=== PATIENT | female | born 1955 | race Caucasian/White ===

== ENCOUNTER → 2016-11-30 | Outpatient (CLI) | payer BC ==
--- NOTE | 2016-11-30 08:34 | CT ---
EXAMINATION TYPE: CT abdomen pelvis wo con DATE OF EXAM: 11/30/2016 COMPARISON: NONE INDICATION: Bilateral flank pain, hematuria DLP: 1139 mGycm, Automated exposure control for dose reduction was used. CONTRAST: None Study performed without Oral Contrast TECHNIQUE: Axial images were obtained from above the diaphragm to the pubic rami in the axial plane a t 5 mm thick sections. Reconstructed images are reviewed on the computer in the coronal plane. FINDINGS: Limited CT sections are obtained the lung bases. The lung bases are clear. CT ABDOMEN: Liver: Normal Spleen: Normal Pancreas: Normal Adrenal glands: Left adrenal gland is mildly thickened at 1.2 cm. Right adrenal gland appears unrema rkable. Gallbladder: Normal Kidneys: No masses are evident. No hydronephrosis is present. No cysts are present. In the coronal plane couple of tiny nonobstructing right renal stones may be present. Aorta: Vascular calcification is within the aorta. Inferior vena cava: Normal. CT PELVIS: Loops of bowel within the abdomen and pelvis are normal. Loops of bowel are without oral contrast limiting their evaluation. Some moderate fecal retention is through the colon. Appendix: Normal as visualized. Urinary bladder: Normal. Genitourinary structures: Uterus is normal. Adnexal regions appear normal. There is calcification in the left adnexal region adjacent to the uterus and posterior to the ovary. Multiple phleboliths withi n the pelvis. Osseous structures: No suspicious lytic or sclerotic lesions. Sacroiliac joint degenerative changes a re noted. Facet degenerative changes are present. IMPRESSIONS: 1. No acute changes. 2. Punctate 1 mm calcification may be in the superior pole right kidney without evidence of obstructi on. No hydronephrosis or hydroureter is present. 3. Mild fecal retention.
== END | disposition home or self-care (01) ==
LOC: RADCTMAIN 08:01
PROVIDERS: ATTEND Internal Medicine Geriatric Medicine
DX: N28.89 Other specified disorders of kidney and ureter (principal); K59.00 Constipation, unspecified
CPT/HCPCS: 74176

== ENCOUNTER → 2016-12-13 | Outpatient (CLI) | payer BC ==
--- NOTE | 2016-12-13 08:17 | US ---
EXAMINATION TYPE: US abdomen complete DATE OF EXAM: 12/13/2016 COMPARISON: NONE CLINICAL HISTORY: Abn Liver Function R94.5. EXAM MEASUREMENTS: Liver Length: 13.8 cm Gallbladder Wall: 0.3 cm CBD: 0.3 cm Spleen: 11.2 cm Right Kidney: 10.3 x 5.5 x 4.8 cm Left Kidney: 10.9 x 5.8 x 4.5 cm Morbidly obese patient, study technically difficult and very limited by this. Pancreas: portions visualized wnl, partially obscured by bowel gas Liver: limited visualization, right lobe seen only intercostal,increased attenuation Gallbladder: very limited view, neck not seen, possible dependant sludge Evidence for sonographic Lundberg's sign: no CBD: limited view Spleen: wnl Right Kidney: No hydronephrosis or masses seen Left Kidney: No hydronephrosis or masses seen Upper IVC: wnl Abd Aorta: distal portion and bifurcation obscured by bowel gas, atherosclerotic changes evident IMPRESSION: 1. Exam limited due to patient body habitus and bowel gas. 2. No suspicious acute changes.
== END | disposition home or self-care (01) ==
LOC: RADUSWWP 06:47
PROVIDERS: ATTEND Internal Medicine Geriatric Medicine
DX: R94.5 Abnormal results of liver function studies (principal); R93.9 Diagnostic imaging inconclusive due to excess body fat of patient
CPT/HCPCS: 76700

== ENCOUNTER 2018-04-02 10:00 | Emergency (ER) | payer BC ==
[2018-04-02 10:13] VITALS: RESP 18; TEMP 97.6
[2018-04-02] MEDS ORDERED: LABETALOL 5 MG/ML VIAL MDV IVP STA (10:14)
[2018-04-02] MEDS ORDERED: MORPHINE SULFATE 4 MG/ML SYRINGE IVP STA (10:15)
[2018-04-02] MEDS ORDERED: ENALAPRILAT 1.25 MG/ML 1 ML VIAL IVP STA ×2 (10:20→10:49)
--- NOTE | 2018-04-02 10:31 | ED ---
Chest Pain HPI - General Chief Complaint: Chest Pain Stated Complaint: chest pain Time Seen by Provider: 04/02/18 10:14 Source: patient, RN notes reviewed, old records reviewed Mode of arrival: wheelchair Limitations: no limitations - History of Present Illness Initial Comments: This is a 63-year-old female the ER for evaluation. Patient is today for severe evaluation of chest pain severe chest pain and abdominal pain severe. Patient also complains of numbness in both legs pain in both legs. Patient's nauseous sweaty. All symptoms began while having a bowel movement earlier today. Patient has no history of high blood pressure, history of thyroid issues and high cholesterol. Denies any trauma. No prior abdominal pain or similar pain Review of Systems ROS Statement: Those systems with pertinent positive or pertinent negative responses have been documented in the HPI. ROS Other: All systems not noted in ROS Statement are negative. EKG Findings - EKG Comments: EKG Findings:: EKG shows sinus bradycardia Past Medical History Past Medical History: GERD/Reflux, Hyperlipidemia, Thyroid Disorder History of Any Multi-Drug Resistant Organisms: None Reported Past Surgical History: No Surgical Hx Reported Past Psychological History: No Psychological Hx Reported Smoking Status: Never smoker Past Alcohol Use History: None Reported Past Drug Use History: Marijuana General Exam Limitations: no limitations General appearance: alert, anxious, in distress, other (Diaphoretic) Head exam: Present: atraumatic, normocephalic, normal inspection Eye exam: Present: normal appearance, PERRL, EOMI. Absent: scleral icterus, conjunctival injection, periorbital swelling ENT exam: Present: normal exam, mucous membranes moist Neck exam: Present: normal inspection. Absent: tenderness, meningismus, lymphadenopathy Respiratory exam: Present: normal lung sounds bilaterally. Absent: respiratory distress, wheezes, rales, rhonchi, stridor Cardiovascular Exam: Present: bradycardia, normal heart sounds. Absent: systolic murmur, diastolic murmur, rubs, gallop, clicks GI/Abdominal exam: Present: soft, normal bowel sounds. Absent: distended, tenderness, guarding, rebound, rigid Extremities exam: Present: other (Bilateral lower extremities are pale, cold, no detectable pulses). Absent: tenderness, pedal edema, joint swelling, calf tenderness Back exam: Present: normal inspection Neurological exam: Present: alert, oriented X3, CN II-XII intact Psychiatric exam: Present: normal affect, normal mood Skin exam: Present: warm, dry, intact, normal color. Absent: rash Course Vital Signs 04/02/18 04/02/18 04/02/18 10:07 11:06 11:09 Temperature 97.6 F Pulse Rate 42 L 48 L 52 L Respiratory 18 18 18 Rate Blood Pressure 197/82 132/58 O2 Sat by Pulse 95 94 L 93 L Oximetry - Reevaluation(s) Reevaluation #1: 04/02/18 11:16 Patient started on strict blood pressure control secondary to elevated blood pressure and a acute aortic dissection Pressure significantly improved systolic 138 Heart rate 46 Reevaluation #2: 04/02/18 11:17 Spoke with Frank Hong unable to take his, did speak with [facility] who is accepting of patient transfer Reevaluation #3: 04/02/18 11:17 Family made aware of findings and prognosis, questions are answered Reevaluation #4: 04/02/18 11:17 Studies CTA chest positive aortic dissection Chest Pain MDM - MDM 63 female the ER for evaluation, patient currently was severe chest pain diaphoresis bradycardia and bilateral lower extremity numbness, patient does have significant findings on CT of acute aortic dissection, patient be transferred for [facility] for further evaluation management Critical Care Time Critical Care Time: Yes Total Critical Care Time: 31 Disposition Clinical Impression: Chest pain, Bradycardia, Acute thoracic aortic dissection Disposition: OTHER INSTITUTION NOT DEFINED Condition: Critical Is patient prescribed a controlled substance at d/c from ED?: No Referrals: Kemal Chapa MD [Primary Care Provider] - 1-2 days - Out of Hospital Transfer - Req. Specs Out of Hospital Transfer - Requested Specifics: Other Emergency Center ([facility])
[2018-04-02] MEDS ORDERED: ONDANSETRON 4 MG/2 ML VIAL IVP STA ×2 (10:35→11:34)
[2018-04-02 10:43] LABS: Basophils # (A) 0.1 k/uL (0-0.2); Basophils % (A) 1 %; Eosinophils # (A) 0.5 k/uL (0-0.7); Eosinophils % (A) 4 %; HCT 44.7 % (34.0-46.0); HGB 14.2 gm/dL (11.4-16.0); Lymphocytes # (A) 2.6 k/uL (1.0-4.8); Lymphocytes % (A) 20 %; MCH 34.1 pg (25.0-35.0); MCHC 31.9 g/dL (31.0-37.0); MCV 107.2 fL (80.0-100.0); Macrocytosis Moderate; Mean Platelet Volume 7.8; Monocytes # (A) 0.7 k/uL (0-1.0); Monocytes % (A) 5 %; Neutrophils # (A) 8.5 k/uL (1.3-7.7); Neutrophils % (A) 68 %; Platelet Count 217 k/uL (150-450); RBC 4.17 m/uL (3.80-5.40); RDW 12.8 % (11.5-15.5); WBC 12.6 k/uL (3.8-10.6)
[2018-04-02] MEDS ORDERED: NITROPRUSSIDE 50 MG in DEXTROSE 5% IN WATER 250 ML IV ONE ×2 (10:44)
[2018-04-02] MEDS ORDERED: NITROGLYCERIN-D5W PMX 50 MG in DEXTROSE/WATER 1 250ML.BAG IV ONE (10:45)
[2018-04-02 10:50] LABS: Partial Thromboplastin Time 24.4 sec (22.0-30.0); Prothrombin Time 9.9 sec (9.0-12.0)
[2018-04-02 11:00] LABS: Albumin 3.7 g/dL (3.5-5.0); Calcium 9.1 mg/dL (8.4-10.2); Magnesium 1.8 mg/dL (1.6-2.3); Potassium 4.3 mmol/L (3.5-5.1); Total Bilirubin 0.5 mg/dL (0.2-1.3); Total Protein 6.5 g/dL (6.3-8.2)
[2018-04-02 11:10] LABS: Creatine Kinase 104 U/L (30-135)
--- NOTE | 2018-04-02 11:17 | CT ---
EXAMINATION TYPE: CT angio tho/abd W Run Off DATE OF EXAM: 04/02/2018 COMPARISON: CT abdomen and pelvis 11/30/2016 HISTORY: 63-year-old female with pain, absent pulses in the lower extremities CT DLP: 3462.6 mGycm Automated exposure control for dose reduction was used. Technique: CT chest, abdomen, and pelvis with bilateral large survey runoff before and after IV contr ast administration. 100 mL Isovue-370 was administered. Coronal and sagittal reconstructions performe d. 3-D reconstructions generated on a dedicated independent workstation. FINDINGS: Chest: Heart borderline enlarged. Enlarged caliber to the main right and left pulmonary arteries measuring up to 2.8 cm suggesting unde rlying pulmonary arterial hypertension. No mediastinal lymphadenopathy. Dependent atelectasis in the lungs. Additional patchy areas of atelectasis in the lower lungs. No ple ural effusion. Vasculature: Initial noncontrast images show no evidence for acute intramural hematoma. Ascending aorta mildly aneurysmal at 4.2 cm. Conventional arch vessel branching anatomy. Upper descen ding thoracic aorta aneurysmal at 3.5 cm. There is a large type B aortic dissection beginning just after the left subclavian artery takeoff. Th ere is no opacification of the false lumen on arterial phase imaging and there is slitlike narrowing of the true lumen which, pneumothorax, is located towards the right with the slitlike opening measuri ng only 3 mm in some areas. In the abdomen, the false lumen extends back around and is nearly circumferential but the celiac axis and SMA manage to arise from the true lumen. The right renal artery lacks perfusion as it arises from the false lumen. Below the level of the right renal artery takeoff, the false lumen swings towards the right. The left renal artery arises from the true lumen. The inferior mesenteric artery is opacified arising from the junction between the true and false lume n likely secondary to a small fenestration. Dissection terminates at the level of the bifurcation. No extension identified into either common or external iliac arteries. Regarding the bilateral lower extremities, there is satisfactory opacification of the common and supe rficial femoral arteries as well as the popliteal arteries. The right anterior tibial, right posterior tibial, and left anterior tibial arteries are very diminut steve likely due to relatively decreased perfusion from the more proximal dissection. Abdomen: No focal liver lesion on arterial phase imaging. Gallbladder, right adrenal gland, spleen, and pancre as appear within normal limits. Nodular thickening of the left adrenal gland. Statistically, this lik erica represents underlying adrenal adenoma. No dilated small bowel, free fluid, or free air. No mesenteric a few prominent upper abdominal lymph nodes in the gastrohepatic region and aleyda hepatis measure up to 8 mm and are probably reactive. No other mesenteric or retroperitoneal lymphadenopathy seen. No significant stool burden. Pelvis: Bladder collapse. Multiple pelvic phleboliths. No abnormal fluid collection the pelvis or pelvic lymp hadenopathy. Slight thickened appearance to the endometrium can be evaluated by pelvic ultrasound on nonemergent basis. Bones: Degenerative changes mid to lower lumbar spine and endplate spondylosis mid to lower thoracic spine. IMPRESSION: 1. Type B aortic dissection extending from just after the left subclavian artery takeoff and terminat ing distally at the aortic bifurcation. This is a large dissection narrowing the thoracic aortic true lumen to a slitlike 3 mm. Given the absent lower extremity pulses on physical exam, suspect some deg ree of dynamic systolic collapsibility of the true lumen. 2. The celiac axis, SMA, left renal artery, and CAITLIN remain perfused via the true lumen. 3. The right renal artery is supplied by the false lumen and is not perfused. 4. There is contrast opacification of the common iliac arteries down through the bilateral trifurcati ons. Some of the trifurcation vessels become diminutive probably in part due to intermittent systolic collapsibility of the true lumen. Underlying chronic vasculopathy is also possible. 5. Nonemergent pelvic ultrasound recommended to assess endometrial thickness in this postmenopausal p atient. Critical findings called to Dr. Whittington in the ER at 10:58 AM.
[2018-04-02 11:22] LABS: Creatine Kinase MB 1.7 ng/mL (0.0-2.4); Troponin I <0.012 ng/mL (0.000-0.034)
[2018-04-02] MEDS ORDERED: LORazepam 2 MG/ML INJ IV STA (11:34)
[2018-04-02 11:42] VITALS: BP 137/54; PULSE 49
== END 2018-04-02 11:43 | disposition short-term general hospital (02) ==
LOC: EC 10:00
DX: I71.01 Dissection of thoracic aorta (principal); R00.1 Bradycardia, unspecified; Z53.8 Procedure and treatment not carried out for other reasons
CPT/HCPCS: 99291; 96365; 96375 ×4; 96376 ×2; 36415; 93005; 86900; 86901; 83880; 80053; 82550; 82553; 83690; 83735; 84484; 85025; 85610; 85730; 86850; 75635; 71275; J2060; J2270; J2405; Q9967

== ENCOUNTER 2018-07-13 21:58 | Emergency (ER) | payer BC ==
--- NOTE | 2018-07-13 22:15 | ED ---
Chest Pain HPI - General Chief Complaint: Chest Pain Stated Complaint: chest pain Time Seen by Provider: 07/13/18 22:07 Source: patient, RN notes reviewed, old records reviewed Mode of arrival: ambulatory Limitations: no limitations - History of Present Illness Initial Comments: This is a 63-year-old female the ER for evasive chest pain. Patient is at significant recent history of chest pain resulting in aortic dissection. Patient has had follow-up is been normal, should have surgery with stent placement that was in did improve her symptoms allow she has been significantly weak fatigue with occasional shortness of breath. Patient does admit to doing some extra lifting today and complaining some chest pain left arm pain mild anxiety with her recent medical history currently. Patient denies any recent change in medications. She did take her blood pressure medication and her blood pressure is been normal MD Complaint: chest pain -: hour(s) Pain Location: left chest Pain Radiation: LUE Severity: mild Severity scale (1-10): 3 Quality: heaviness Consistency: constant, now resolved Improves With: nothing Worsens With: nothing Context: recent surgery Anginal Symptoms: dyspnea Other Symptoms: palpitations Treatments Prior to Arrival: none - Related Data Home Medications Medication Instructions Recorded Confirmed Aspirin EC [Ecotrin Low Dose] 81 mg PO DAILY 04/02/18 07/13/18 Baclofen 10 mg PO DAILY PRN 04/02/18 07/13/18 Levothyroxine Sodium [Synthroid] 50 mcg PO DAILY 04/02/18 07/13/18 Acetaminophen Tab [Tylenol] 500 mg PO Q8HR PRN 07/13/18 07/13/18 DULoxetine HCL [Cymbalta] 30 mg PO DAILY 07/13/18 07/13/18 Lovastatin [Mevacor] 20 mg PO DAILY 07/13/18 07/13/18 Metoprolol Tartrate [Lopressor] 75 mg PO BID 07/13/18 07/13/18 NIFEdipine XL [Procardia XL] 60 mg PO DAILY 07/13/18 07/13/18 Zolpidem Tartrate [Ambien] 2.5 mg PO HS 07/13/18 07/13/18 Allergies Allergy/AdvReac Type Severity Reaction Status Date / Time codeine AdvReac Unknown Verified 07/13/18 22:26 Review of Systems ROS Statement: Those systems with pertinent positive or pertinent negative responses have been documented in the HPI. ROS Other: All systems not noted in ROS Statement are negative. EKG Findings - EKG Comments: EKG Findings:: EKG shows sinus rhythm rate of 84, IL 160, QRS 84, QTC 486 Past Medical History Past Medical History: GERD/Reflux, Hyperlipidemia, Thyroid Disorder Additional Past Medical History / Comment(s): aortic dissection on 04/02/18 History of Any Multi-Drug Resistant Organisms: None Reported Past Surgical History: No Surgical Hx Reported Additional Past Surgical History / Comment(s): Endo graft with stent. Past Psychological History: No Psychological Hx Reported Smoking Status: Never smoker Past Alcohol Use History: None Reported Past Drug Use History: Marijuana General Exam Limitations: no limitations General appearance: alert, in no apparent distress Head exam: Present: atraumatic, normocephalic, normal inspection Eye exam: Present: normal appearance, PERRL, EOMI. Absent: scleral icterus, conjunctival injection, periorbital swelling ENT exam: Present: normal exam, mucous membranes moist Neck exam: Present: normal inspection. Absent: tenderness, meningismus, lymphadenopathy Respiratory exam: Present: normal lung sounds bilaterally. Absent: respiratory distress, wheezes, rales, rhonchi, stridor Cardiovascular Exam: Present: regular rate, normal rhythm, normal heart sounds. Absent: systolic murmur, diastolic murmur, rubs, gallop, clicks GI/Abdominal exam: Present: soft, normal bowel sounds. Absent: distended, tenderness, guarding, rebound, rigid Extremities exam: Present: normal inspection, full ROM, normal capillary refill. Absent: tenderness, pedal edema, joint swelling, calf tenderness Back exam: Present: normal inspection Neurological exam: Present: alert, oriented X3, CN II-XII intact Psychiatric exam: Present: normal affect, normal mood Skin exam: Present: warm, dry, intact, normal color. Absent: rash Course Vital Signs 07/13/18 07/13/18 07/14/18 22:01 22:43 01:09 Temperature 97.7 F 98.9 F Pulse Rate 95 82 Pulse Rate [ 95 [employer] Ware[employer] ] Respiratory 18 20 16 Rate Blood Pressure 166/94 123/78 O2 Sat by Pulse 96 97 Oximetry - Reevaluation(s) Reevaluation #1: Medical record is reviewed including prior ER visit with positive CTA for dissection Patient is without complaint throughout emergency department stay no chest pain Patient does admit to anxiety Spoke with . do her will see patient in follow-up on renal function secondary to CT with contrast, one kidney Chest Pain MDM - MDM 63 female the ER for evaluation of chest pain. Anxiety. Patient has normal CT , informed her results patient feels improved. Like to be discharged home Disposition Clinical Impression: Chest pain Disposition: HOME SELF-CARE Condition: Good Instructions (If sedation given, give patient instructions): Chest Pain (ED) Is patient prescribed a controlled substance at d/c from ED?: No Referrals: Kemal Chapa MD [Primary Care Provider] - 1-2 days
[2018-07-13 22:44] LABS: Basophils # (A) 0.1 k/uL (0-0.2); Basophils % (A) 1 %; Eosinophils # (A) 0.5 k/uL (0-0.7); Eosinophils % (A) 5 %; HCT 41.8 % (34.0-46.0); HGB 13.8 gm/dL (11.4-16.0); Lymphocytes # (A) 3.2 k/uL (1.0-4.8); Lymphocytes % (A) 31 %; MCH 34.3 pg (25.0-35.0); MCHC 32.9 g/dL (31.0-37.0); MCV 104.2 fL (80.0-100.0); Macrocytosis Slight; Mean Platelet Volume 6.8; Monocytes # (A) 0.7 k/uL (0-1.0); Monocytes % (A) 7 %; Neutrophils # (A) 5.6 k/uL (1.3-7.7); Neutrophils % (A) 54 %; Platelet Count 296 k/uL (150-450); RBC 4.01 m/uL (3.80-5.40); RDW 12.6 % (11.5-15.5); WBC 10.3 k/uL (3.8-10.6)
[2018-07-13 22:54] LABS: Albumin 4.5 g/dL (3.5-5.0); Calcium 9.6 mg/dL (8.4-10.2); Magnesium 2.3 mg/dL (1.6-2.3); Potassium 4.5 mmol/L (3.5-5.1); Total Bilirubin 0.3 mg/dL (0.2-1.3); Total Protein 7.8 g/dL (6.3-8.2)
[2018-07-13 23:01] LABS: INR 0.8 (<1.2); Partial Thromboplastin Time 26.6 sec (22.0-30.0); Prothrombin Time 9.3 sec (9.0-12.0)
[2018-07-13 23:04] LABS: Creatine Kinase 55 U/L (30-135)
[2018-07-13 23:17] LABS: Creatine Kinase MB 0.3 ng/mL (0.0-2.4); Troponin I <0.012 ng/mL (0.000-0.034)
--- NOTE | 2018-07-14 00:32 | CT ---
EXAMINATION TYPE: CT angio thor/abd pel aorta DATE OF EXAM: 07/14/2018 COMPARISON: 04/02/2018 HISTORY: chest pain CT DLP: 2408.8 mGycm. Automated Exposure Control for Dose Reduction was Utilized. CONTRAST: CT scan of the thorax, abdomen and pelvis is performed with IV Contrast, patient injected with 100mL mL of Isovue 370. FINDINGS: Multiple axial sections were obtained from the thoracic inlet to the floor the pelvis without and sub sequently with intravenous contrast. There are 3-D post processed images. There is subsegmental atelectasis at the posterior lung bases. Thoracic aorta shows a stent in the de scending thoracic aorta. There is no evidence of thoracic aneurysm or dissection. There is no mediast inal adenopathy. There are no hilar masses. There is no filling defect seen in the pulmonary arteries . There is no pericardial effusion. There is patency of the celiac artery and superior mesenteric artery. There is a diminutive right fabi al artery. There is a normal-appearing left renal artery. There is decreased perfusion of the right k idney with cortical thinning consistent with chronic ischemia. There is normal contrast opacification of the iliac arteries. There is no evidence of abdominal aorti c aneurysm. Liver spleen stomach gallbladder pancreas appear normal. Bile ducts are not dilated. There is no adre nal mass. There is no retroperitoneal adenopathy. There is no ascites. There is no evidence of a santo l obstruction. Appendix appears normal. There is no free fluid in the pelvis. There is no mesenteric edema. There is no sign of free air. There is focal aortic dissection on the right lateral wall of th e mid abdominal aorta at the location of the right renal artery origin. I see no bony destructive process. Thoracic and lumbar vertebra appear intact. There is spurring in t he thoracic and lumbar spine. There is severe stenosis at L4-5 due to extensive facet arthropathy and posterior disc bulging. IMPRESSION: Compared to last exam there has been placement of aortic stent repairing the long segment aortic diss ection of the descending thoracic aorta. There is chronic ischemic change in the right kidney and dec reased flow in the right renal artery. There was absence of flow in right renal artery on the old CT scan. There is limited chronic dissection of the right lateral mid abdominal aorta at the level of ri ght renal artery. No aneurysm. No evidence of intestinal ischemia. Severe bony spinal stenosis at L4-5.
[2018-07-14 01:11] VITALS: BP 123/78; PULSE 82; RESP 16; TEMP 98.9
== END 2018-07-14 01:23 | disposition home or self-care (01) ==
LOC: EC 21:58
DX: R07.89 Other chest pain (principal); F41.9 Anxiety disorder, unspecified; M79.602 Pain in left arm; R00.2 Palpitations; K21.9 Gastro-esophageal reflux disease without esophagitis; E78.5 Hyperlipidemia, unspecified; E07.9 Disorder of thyroid, unspecified; Z79.82 Long term (current) use of aspirin; Z79.890 Hormone replacement therapy; Z79.899 Other long term (current) drug therapy; Z88.5 Allergy status to narcotic agent
CPT/HCPCS: 36415; 93005; 83880; 80053; 82550; 82553; 83690; 83735; 84484; 85025; 85610; 85730; 71275; 74174; 99285; Q9967

== ENCOUNTER → 2018-07-30 | Outpatient (CLI) | payer BC ==
--- NOTE | 2018-07-30 13:13 | ECHOS ---
STRESS ECHOCARDIOGRAM DATE OF SERVICE: 07/30/2018 INDICATION OF THIS STUDY: Chest discomfort. MEDICATIONS: BASELINE HEART RATE: 91 BASELINE BLOOD PRESSURE: 159/80 MAXIMUM HEART RATE: 140 MAXIMUM BLOOD PRESSURE: 218/105 85% MPHR: 133 100% MPHR: 157 METS: 4 MAXIMUM STAGE REACHED: I TOTAL EXERCISE TIME: 3 minutes CLINICAL INFORMATION: STRESS DATA: Pretesting physical examination showed a heart rate 91, pressure is 159/80 mmHg. Baseline EKG showed sinus mechanism. The patient exercised on the treadmill according to Seferino protocol for a total of 3 minutes and achieved 4 of METs. Max heart rate was 140, which is about 89% of maximum predicted heart rate. Maximum blood pressure was 218/105 mmHg. Clinically the patient did develop shortness of breath in response to exercise. The EKG showed about 0.[address]-segment depression. ECHOCARDIOGRAM IMAGES: On echocardiogram images from parasternal long axis view, parasternal short axis view, apical 4 chamber view and apical 2 chamber view were obtained at the baseline images, at the peak of the heart rate as well as on recovery. The echocardiogram images did not show any evidence of wall motion abnormalities concerning for ischemia. Please note that the echo quality are very, very poor. CONCLUSION: 1. Poor exercise tolerance as the patient walked on the treadmill only for 3 minutes. 2. Mild EKG changes and response to exercise did not meet the criteria for ischemia. 3. Technically very difficult echocardiogram images. I could not see any obvious wall motion abnormalities concerning for ischemia. If there is any concerning about severe underlying coronary artery disease Lexiscan Cardiolite stress test is recommended. MMODL / IJN: [id number] /
== END | disposition home or self-care (01) ==
LOC: RADNMMAIN 08:53
PROVIDERS: ATTEND Internal Medicine
DX: R07.89 Other chest pain (principal)
CPT/HCPCS: 93351; Q9950

== ENCOUNTER → 2018-08-09 | Outpatient (CLI) | payer BC ==
--- NOTE | 2018-08-09 15:16 | US ---
EXAMINATION TYPE: US abdomen complete DATE OF EXAM: 08/09/2018 COMPARISON: CT 07/13/2018, US 12/13/2016 CLINICAL HISTORY: Atherosclerosis Renal Artery I70.1. Difficult and limited exam due to patient body habitus and overlying bowel gas EXAM MEASUREMENTS: Liver Length: 14.5 cm Gallbladder Wall: 0.2 cm CBD: 0.5 cm Spleen: 9.3 cm Right Kidney: 7.0 x 3.5 x 2.5 cm Left Kidney: 11.3 x 5.6 x 5.3 cm Pancreas: Tail obscured by overlying bowel gas, visualized portions wnl Liver: Limited visualization, heterogeneous Gallbladder: wnl Evidence for sonographic Lundberg's sign: No CBD: wnl Spleen: wnl Right Kidney: Measuring small Left Kidney: No hydronephrosis. No cystic or solid mass visualized Upper IVC: wnl Abd Aorta: Atherosclerotic changes visualized, measuring upper limits of normal at proximal portion. Difficult and limited exam due to overlying bowel gas IMPRESSION: 1. Visualized portions of the abdomen ultrasound or unremarkable. 2. There is some limitation due to bowel gas.
== END | disposition home or self-care (01) ==
LOC: RADUSWWP 06:57
PROVIDERS: ATTEND Internal Medicine Geriatric Medicine
DX: I70.1 Atherosclerosis of renal artery (principal)
CPT/HCPCS: 76700

== ENCOUNTER → 2018-09-25 | Outpatient (CLI) | payer BC ==
--- NOTE | 2018-09-25 14:09 | MM ---
Reason for exam: screening (asymptomatic). Last mammogram was performed 3 years and 1 month ago. History: Patient is postmenopausal and had first child at age 32. Family history of breast cancer in maternal grandmother and breast cancer in maternal aunt. Physical Findings: A clinical breast exam by your physician is recommended on an annual basis and results should be correlated with mammographic findings. MG 3D Screening Mammo W/Cad Bilateral CC and MLO view(s) were taken. XCCL view(s) were taken of the right breast. Prior study comparison: September 07, 2015, bilateral MG 3d screening mammo w/cad. May 20, 2013, [facility] DIGITAL LEFT BREAST MAMMOGRAM w/CAD. The breast tissue is heterogeneously dense. This may lower the sensitivity of mammography. There are benign appearing round linear calcifications bilaterally. There is no discrete abnormality. ASSESSMENT: Benign, BI-RAD 2 RECOMMENDATION: Routine screening mammogram of both breasts in 1 year.
--- NOTE | 2018-09-25 22:30 | BD ---
EXAMINATION TYPE: Axial Bone Density DATE OF EXAM: 09/25/2018 CLINICAL HISTORY: Height: 63 inches Weight: 244 pounds FRAX RISK QUESTIONS: Alcohol (3 or more units per day): no Family History (Parent hip fracture): no Glucocorticoids (More than 3mos): no (Ex: prednisone, prednisolone, methylprednisolone, dexamethasone, and hydrocortisone). History of Fracture in Adulthood: no Secondary Osteoporosis: 1. Type 1 Diabetes: no 2. Hyperthyroidism: unsure 3. Menopause before 45: no 4. Malnutrition: no 5. Chronic liver disease: no Rheumatoid Arthritis: no Current Tobacco Use: no RISK FACTORS HISTORY OF: Family History of Osteoporosis: no Active: yes Diet low in dairy products/other sources of calcium: no Postmenopausal woman: yes Take estrogen and/or progesterone medications: no Lost more than 2 inches in height since high school: possibly, states height may at one time have bee n about 65 inches Frequent falls: no Poor Health: slightly Hyperparathyroidism: no Adrenal Insufficiency: no MEDICATIONS: Prednisone or other steroids: no Thyroid Medications: yes Which medication: Levothyroxine How Long: about 3 years Osteoporosis Medications: no Additional Medications: heart meds , cholesterol med, blood pressure med Additional History: aortic dissection 6 months ago; one functional kidney EXAM MEASUREMENTS: Bone mineral densitometry was performed using the [employer] System. Bone mineral density as measured about the Lumbar spine is: ----- L1-L4(G/cm2): 1.858 T Score Values are as follows: ----- L2: 5.1 ----- L3: 6.4 ----- L4: 6.2 ----- L1-L4: 5.7 Bone mineral density has: Increased 22.3% since study of: 02/19/2007 Bone mineral density about the R hip (g/cm2): 1.247 Bone mineral density about the L hip (g/cm2): 1.193 T Score values are as follows: -----R Neck: 1.5 -----L Neck: 1.1 -----R Total: 2.3 -----L Total: 2.2 Bone mineral density has: Decreased -9.8% since study of: 02/19/2007 IMPRESSION: Normal (Values between +1 and -1 indicate normal bone mass). Consider repeating this study in 5 year s or sooner if there is some new clinical indication. NOTE: T-SCORE=SD OF THE YOUNG ADULT MEAN.
== END | disposition home or self-care (01) ==
LOC: RADMAMWWP 07:10
PROVIDERS: ATTEND Internal Medicine Geriatric Medicine
DX: Z12.31 Encounter for screening mammogram for malignant neoplasm of breast (principal); M81.0 Age-related osteoporosis without current pathological fracture
CPT/HCPCS: 77063; 77067; 77080

== ENCOUNTER → 2018-12-24 | Outpatient (CLI) | payer BC ==
[~2018-12-24] MED LIST: REGADENOSON 0.4 MG/5 ML SYRINGE IV ONE
--- NOTE | 2018-12-24 10:42 | NM ---
EXAMINATION TYPE: NM stress lexiscan cardiolite DATE OF EXAM: 12/24/2018 COMPARISON: NONE HISTORY: Chest pain TECHNIQUE: After the intravenous administration of 10.5 mCi Tc 99m Sestamibi - Cardiolite resting SP ECT images acquired 45 minutes post injection. The patient received 0.4mg Lexiscan, 25.4 mCi Tc 99m Sestamibi - Stress images obtained [address] injection FINDINGS: Review of stress and rest SPECT images demonstrates fixed defect involving the apex and lateral myoca rdium suggestive of a small area of stress-induced reversibility. Report called to the referring clin ician. IMPRESSION: 1. Findings are suspicious for a small area of stress-induced reversible ischemia involving the apica l and apical lateral portion myocardium. A [place] level critical message alert has been initiated for Kemal Chapa MD via the [employer] Critical Results System on 12/24/2018 10:39 AM. This message alert has been sent to Kemal Chapa MD vi a the preferences provided by the clinician for the receipt of Radiology Critical Findings. Message I D [id number].
--- NOTE | 2018-12-24 11:28 | P.STRESS ---
- Stress Test Note Stress Test Results/Findings: Exam Performed: NM stress lexiscan cardiolite Exam Date: 12/24/18 Reason for Exam: CHEST PAIN Height: 5 ft 4 in Weight: 113.398 kg Protocol: LEXISCAN Stage: NA Duration of Exercise: NA Resting Heart Rate: 63 Resting Blood Pressure: 114/85 Maximum Achieved Heart Rate: 78 Maximum Achieved Blood Pressure: 121/76 85% PMHR: NA 100% PMHR: NA METS: NA Technologist Comment: Stress Test Results/Findings: This is a 62-year-old female with history of hypertension, hypercholesteremia, and smoking history, being evaluated for cardiac status. Stress data: Baseline EKG showed sinus rhythm with normal NH interval and QRS duration. Blood pressure at rest is 114/85 with pulse rate of 63. A standard dose of Lexiscan was infused. EKGs done during and after infusion did not reveal any changes of ischemia. Final impression: #1. Negative Lexiscan stress test #2. Report on the nuclear images to be given by the radiologist.
== END | disposition home or self-care (01) ==
LOC: RADNMMAIN 07:27
PROVIDERS: ATTEND Internal Medicine Geriatric Medicine
DX: I25.119 Atherosclerotic heart disease of native coronary artery with unspecified angina pectoris (principal)
CPT/HCPCS: 93017; 78452; A9500; J2785

== ENCOUNTER → 2019-01-06 | Outpatient (CLI) | payer BC ==
[2019-01-06 19:23] LABS: African American GFR (CKD) 55.7 (60.0-200.0); BUN/Creat Ratio 16.67 Ratio (12.00-20.00); Calcium 9.6 mg/dL (8.7-10.3); Magnesium 1.9 mg/dL (1.5-2.4); Potassium 4.3 mmol/L (3.5-5.5)
== END | disposition home or self-care (01) ==
LOC: LABWHC1 11:33
PROVIDERS: ATTEND Internal Medicine
DX: N18.3 Chronic kidney disease, stage 3 (moderate) (principal)
CPT/HCPCS: 36415; 80048; 83735

== ENCOUNTER → 2019-03-31 | Outpatient (CLI) | payer BC ==
--- NOTE | 2019-03-31 08:41 | US ---
EXAMINATION TYPE: US venous doppler duplex LE BI DATE OF EXAM: 03/31/2019 8:32 AM COMPARISON: NONE CLINICAL HISTORY: 64-year-old female R60 edema; I12.9 benign hypertension with chronic. Intermittent bilateral leg edema SIDE PERFORMED: Bilateral TECHNIQUE: The lower extremity deep venous system is examined utilizing real time linear array sonog ange with graded compression, doppler sonography and color-flow sonography. FINDINGS: VESSELS IMAGED: External Iliac Vein (EIV) Common Femoral Vein Deep Femoral Vein Greater Saphenous Vein * Femoral Vein Popliteal Vein Small Saphenous Vein * Proximal Calf Veins (* superficial vessels) Right Leg: Appears negative for DVT Left Leg: Appears negative for DVT IMPRESSION: No evidence for DVT within the bilateral lower extremities imaged from the groin to the upper calves.
== END ==
LOC: RADUSWWP 08:05
PROVIDERS: ATTEND Internal Medicine
DX: I12.9 Hypertensive chronic kidney disease with stage 1 through stage 4 chronic kidney disease, or unspecified chronic kidney disease (principal); N18.9 Chronic kidney disease, unspecified; R60.0 Localized edema
CPT/HCPCS: 93970

== ENCOUNTER → 2019-05-29 | Outpatient (CLI) | payer BC ==
[2019-05-29 14:57] LABS: HCT 38.7 % (34.0-46.0); HGB 12.7 gm/dL (11.4-16.0); MCH 35.8 pg (25.0-35.0); MCHC 32.7 g/dL (31.0-37.0); MCV 109.2 fL (80.0-100.0); Macrocytosis Moderate; Mean Platelet Volume 8.4; Platelet Count 236 k/uL (150-450); RBC 3.54 m/uL (3.80-5.40); RDW 12.7 % (11.5-15.5); WBC 10.4 k/uL (3.8-10.6)
[2019-05-29 15:04] LABS: Potassium 4.8 mmol/L (3.5-5.1)
== END | disposition home or self-care (01) ==
LOC: LABPAT 13:40
PROVIDERS: ATTEND Internal Medicine Interventional Cardiology
DX: Z01.812 Encounter for preprocedural laboratory examination (principal); Z82.49 Family history of ischemic heart disease and other diseases of the circulatory system
CPT/HCPCS: 36415; 80051; 82565; 84520; 85027

== ENCOUNTER 2019-06-02 09:38 | Day surgery (SDC) | payer BC ==
[2019-05-28 16:06] VITALS: BMI 42.9
[~2019-06-02 09:38] MED LIST changes: +ALPRAZolam 0.25 MG TAB PO PRN; +ALPRAZolam 0.5 MG TAB PO PRN; +ASPIRIN 325 MG TAB PO STA; +NITROGLYCERIN SL TABS 0.4 MG TAB SUBLINGUAL PRN; -REGADENOSON 0.4 MG/5 ML SYRINGE IV ONE
[2019-06-02] MEDS ORDERED: SODIUM CHLORIDE 0.9% 1,000 ML in EMPTY BAG 1 BAG IV ONE (10:00)
[2019-06-02 10:51] VITALS: RESP 16; TEMP 97.8
[2019-06-02] MEDS ORDERED: VERAPAMIL 2.5 MG/ML 2 ML AMP ONE (12:26)
[2019-06-02] MEDS ORDERED: LIDOCAINE 1% INJ 10MG/ML (20 ML MDV) ONE (12:26)
[2019-06-02] MEDS ORDERED: LIDOCAINE 1% INJ 10MG/ML (20 ML MDV) SQ ONE (12:43)
[2019-06-02] MEDS ORDERED: MIDAZOLAM 2 MG/2 ML VIAL IV ONE (12:43)
[2019-06-02] MEDS: VERAPAMIL SYRINGE (5 MG/10 ML) INTRAARTER ONE ×2 (12:45→12:51)
[2019-06-02] MEDS ORDERED: HEPARIN SODIUM 1,000 UN/ML (10ML VL) ONE (12:45)
[2019-06-02] MEDS ORDERED: HEPARIN SODIUM 1,000 UN/ML (10ML VL) IV ONE (12:46)
[2019-06-02] MEDS ORDERED: IOPAMIDOL-370 125ML BTL INJ ONE (12:52)
[2019-06-02] MEDS ORDERED: RX INFO: IV CONTRAST WAS GIVEN 1 EACH MISC MISCELLANE PRN (12:57)
[2019-06-02] MEDS ORDERED: SODIUM CHLORIDE 0.9% 1,000 ML IV SCH (13:00)
--- NOTE | 2019-06-02 15:36 | CC ---
CARDIAC CATHETERIZATION REPORT DATE OF SERVICE: 06/02/2019 PERFORMING PHYSICIAN: Juan Jose Resendiz MD. PROCEDURE PERFORMED: 1. Selective right and left coronary angiogram. 2. Left heart catheterization. INDICATION: This is a 64-year-old female patient with hypertension and dyslipidemia and significant family history of coronary artery disease, was experiencing symptoms of chest discomfort concerning for angina. Because of that, a heart catheterization was advised. APPROACH: Right radial artery. COMPLICATION: None. LEVEL OF SEDATION: Moderate with sedation length of 13 minutes. PROCEDURE DESCRIPTION: After obtaining an informed consent, the patient was brought to the cardiac laborer [facility]. The right radial artery was cannulated using micropuncture technique and a micropuncture wire passed easily, then I placed a 6-[place]izen [place] sheath in the right radial artery. After that, I did give the patient 2 mg of verapamil IA and units of heparin IV. Selective right and left coronary angiogram performed using JR4 and JL3.5 catheters. Left heart catheterization was performed using 6-[place]izen [place] pigtail catheter. The procedure was completed without any complication. SELECTIVE CORONARY ANGIOGRAM: 1. The RCA is a medium caliber vessel. It is a dominant vessel, it appeared to be angiographically normal. 2. The left main is angiographically normal, it bifurcates into LCX and LAD. 3. The LCX is a large caliber vessel, it is a nondominant vessel and appeared to be angiographically normal in the proximal portion, in the midportion it gives rise into a large OM branch which seems to be normal. 4. The LAD appeared to be a large caliber vessel. It is angiographically normal. The midportion gives rise into a diagonal branch which seems to be normal. 5. HEMODYNAMICS: The LVEDP was 10-12 mmHg without significant gradient across the aortic valve. CONCLUSION: 1. Normal coronary angiogram. 2. Normal left ventricular end-diastolic pressure. POSTPROCEDURE MANAGEMENT: Medical treatment. MMODL / IJN: [id number] /
[2019-06-02 18:10] VITALS: BP 155/72; PULSE 55
== END 2019-06-02 18:01 | disposition home or self-care (01) ==
LOC: CATHCVL 09:38
PROVIDERS: ATTEND Internal Medicine Interventional Cardiology
DX: R07.89 Other chest pain (principal); I10 Essential (primary) hypertension; E78.5 Hyperlipidemia, unspecified; I73.9 Peripheral vascular disease, unspecified; E03.9 Hypothyroidism, unspecified; Z82.49 Family history of ischemic heart disease and other diseases of the circulatory system; Z79.82 Long term (current) use of aspirin; Z79.899 Other long term (current) drug therapy; Z79.890 Hormone replacement therapy; Z98.890 Other specified postprocedural states; Z86.79 Personal history of other diseases of the circulatory system
CPT/HCPCS: 93458; C1769; C1894; J2250; J2001; J1644; Q9967

== ENCOUNTER 2020-12-15 | Emergency (ER) | payer MEDICARE, BC | END 2020-12-15 10:45 | disposition home or self-care (01) | CPT/HCPCS: 36415; 80053; 81001; 85025; 87086; 96374; 99283 ==

== ENCOUNTER → 2021-09-01 | Outpatient (CLI) | payer MEDICARE ==
--- NOTE | 2021-09-02 01:08 | CT ---
EXAMINATION TYPE: CT chest w con DATE OF EXAM: 09/01/2021 COMPARISON: CT dated 07/13/2018 HISTORY: h/o thoracic aortic aneurysm CT DLP: 624.7 mGycm Automated exposure control for dose reduction was used. TECHNIQUE: CT scan of the chest is performed with IV Contrast, patient injected with 74 mL of Isovue 300. FINDINGS: LUNGS: Minimal bilateral basal linear pulmonary atelectasis and posterior subpleural reticulations. U nremarkable lungs otherwise. Patent central airways. No pleural effusion. MEDIASTINUM: The ascending aorta measures 4.4 cm compared to 4.2 cm previously. Aortic stent is seen starting from the aortic arch distal to the origin of the left common carotid artery and extending to the inferior aspect of the descending thoracic aorta, appreciated previously. The descending aorta m easures up to 3.4 cm compared to 3.2 cm previously. No evidence of endoleak or contrast extravasation with patent thoracic aorta. 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 Patent remainder of the mediastinal arteries. The pulmonary trunk measu res up to 3.2 cm. No gross cardiomegaly. No pericardial effusion. No pathologically enlarged lymph no vanessa in the chest. OTHER: Enlarged liver. Thickened left adrenal stable. T7-8 disc calcification/hyperdense material ex tending into the spinal canal and causing mild bony spinal canal stenosis. Further MRI of the thoraci c spine assessment can be considered if clinically required. Degenerative changes at L1-2 level. No a ggressive bone lesion. IMPRESSION: Mild interval increase in the size of the ascending aortic aneurysm as described above. Stable post a ortic stenting with no evidence of contrast extravasation or leak. Stable occlusion of the proximal p ortion of the left subclavian artery yet patent distally. Other incidental findings as described abov e.
== END | disposition home or self-care (01) ==
LOC: RADCTMAIN 14:03
PROVIDERS: ATTEND Internal Medicine Geriatric Medicine
DX: I71.2 Thoracic aortic aneurysm, without rupture (principal); I70.8 Atherosclerosis of other arteries
CPT/HCPCS: 82565; 84520; 71260; 36415; Q9967

== ENCOUNTER → 2022-01-12 | Outpatient (CLI) | payer MEDICARE ==
--- NOTE | 2022-01-12 12:09 | P.SLEEP ---
History of Present Illness DATE: 01/12/2022 CONSULTATION/NEW PATIENT EVALUATION HISTORY OF PRESENT ILLNESS/SLEEP-WAKE EVALUATION: 66year old lady had been e valuated in the sleep center for possible obstructive sleep apnea hypopnea syndrome. SLEEP SCHEDULE: Usually sleep schedule is late from 3 AM until 8 AM 7 days a week. FALLING ASLEEP: Patient does have problems with falling asleep, although no TV in bedroom. DURING SLEEP: Patient has loud snoring, witnessed episodes of sleep apnea, awakenings from sleep with gasping for air, dry mouth, sweating. Positive history of sleep talking. History of hand movements during the sleep. No history of hypnogogical hallucinations, sleep paralysis, or cataplexy. DURING THE DAY/WAKE STATE: In the morning patient wake up tired. [place] sleepiness scale is 7. Patient take up to 2 naps in the morning. 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 prediabetes. PAST SURGICAL HISTORY: Surgery for aortic dissection in descendent area. MEDICATIONS: Atorvastatin 40 mg once a day, isosorbide 30 mg once a day, allopurinol 100 mg once a day, valsartan 40 mg once a day, metoprolol 100 mg 2 tablets in the morning and 2 tablets in the evening, levothyroxine 50 mcg once a day, aspirin 81 mg once a day. SOCIAL HISTORY: No nicotine smoking, occasionally marijuana smoking, alcohol consumption occasional. FAMILY HISTORY: [Stroke, cancer. REVIEW OF SYSTEMS: [Loud snoring, episodes of sleep apnea, difficulties to initiate sleep. No fevers. No double vision. No recent chest pain. No shortness of breath. No abdominal pain. No bleeding episodes. No blood in urine. No seizure episodes. PHYSICAL EXAMINATION: GENERAL: A pleasant patient without any distress. VITAL SIGNS: BP[ 124/69 HR 62 RR[ 16 weight[ 264.6 ounds, height[ 5 oot[ 3-7/8 nches, body mass index[ 45.7 HEENT: PERRLA, EOMI. Evaluation of oropharynx showed tongue protrudes midline, low position of soft palate Mallampati[4 NECK: Supple. No JVD. Thyroid is not palpable. 19-1/4 nches in circumference. LUNGS: Clear to percussion and to auscultation. Good air exchange. No wheezing or rhonchi. HEART: S1, S2 regular. No murmurs, gallops or rubs. ABDOMEN: Soft and nontender. Bowel sounds are present. No organomegaly appreciated. obese EXTREMITIES: No clubbing or cyanosis. ADMINISTRATIVE SUPPORT CLERK: Awake, alert, and oriented x3. Cranial nerves 2 to 7 intact. There is no fasciculation or atrophy noted. No focal deficits observed. ASSESSMENT: 1. Loud snoring, witnessed sleep apneas, extremely low position of soft palate Mallampati 4, wide neck 19-1/4 inches in circumference. Obstructive sleep apnea hypopnea syndrome 2. Sleep delay. Difficulties to initiate sleep. Patient take naps during the day. 3 obesity body mass index 45.7 4. Hypertension 5 [].Hypertension, , , , , ,. . 6. [].aortic dissection 7. [].hypothyroidism 8. [].gout 9. [].1 kidney not functioning after aortic dissection 10.[].prediabetes 11.[].hyperlipidemia 12 [].Surgery for aortic dissection in descend the low: PLAN 1. Polysomnography for evaluation of patient's breathing during sleep. 2. CPAP/BiPAP titration if sleep study confirms obstructive sleep apnea- hypopnea syndrome. 3. Preferable position during sleep on the side. 4. No driving if patient feels any sleepiness. Patient is aware of civil and criminal liability for unsafe driving. 5. Sleep hygiene with regular sleep time for at least 7.5-8 hours. 6. Watching and losing weight. Thank you very much for referring this patient for consultation. Sincerely, Jhon Delgado MD, PhD, FAASM. Diplomat of [place] [employer], Sleep Medicine Board by [place] [employer] [place] [employer] Supervisor [employer] [facility] [place] Past Medical History Past Medical History: Chest Pain / Angina, GERD/Reflux, Hyperlipidemia, Hypertension, Sleep Apnea/CPAP/BIPAP, Thyroid Disorder Additional Past Medical History / Comment(s): aortic dissection on 04/02/18- (only has 1 functioning kidney-one kidney damaged with aortic dissection), varicose veins, insomnia, no cpap used, gout, spinal stenosis, History of Any Multi-Drug Resistant Organisms: None Reported Past Surgical History: No Surgical Hx Reported Additional Past Surgical History / Comment(s): 30 cm placed stent in aorta Past Anesthesia/Blood Transfusion Reactions: Motion Sickness, Postoperative Nausea & Vomiting (PONV) Past Psychological History: No Psychological Hx Reported Smoking Status: Never smoker Past Alcohol Use History: Occasional Past Drug Use History: Marijuana - Past Family History Father Family Medical History: Cancer, Deep Vein Thrombosis (DVT) Sister(s) Family Medical History: Deep Vein Thrombosis (DVT) Medications and Allergies Home Medications Medication Instructions Recorded Confirmed Type Aspirin EC [Ecotrin Low Dose] 81 mg PO DAILY 04/02/18 06/02/19 History Baclofen 10 mg PO HS 04/02/18 06/02/19 History Levothyroxine Sodium [Synthroid] 50 mcg PO DAILY 04/02/18 05/28/19 History Acetaminophen Tab [Tylenol] 500 mg PO Q8HR PRN 07/13/18 06/02/19 History Atorvastatin [Lipitor] 40 mg PO DAILY 05/28/19 06/02/19 History DULoxetine HCL [Cymbalta] 60 mg PO DAILY 05/28/19 06/02/19 History Ergocalciferol [Vitamin D2 50,000 unit PO QMONTH 05/28/19 06/02/19 History (DRISDOL)] Isosorbide Mononitrate ER [Imdur] 30 mg PO DAILY 05/28/19 05/28/19 History Metoprolol Tartrate [Lopressor] 100 mg PO BID 05/28/19 05/28/19 History Multivitamins, Thera [Multivitamin 1 tab PO DAILY 05/28/19 05/28/19 History (formulary)] Torsemide [Demadex] 5 mg PO DAILY 05/28/19 05/28/19 History Valsartan 40 mg PO DAILY 05/28/19 06/02/19 History allopurinoL [Zyloprim] 100 mg PO DAILY 05/28/19 06/02/19 History Cephalexin [Keflex] 500 mg PO Q6HR 5 Days #20 cap 12/15/20 Rx Allergies Allergy/AdvReac Type Severity Reaction Status Date / Time codeine AdvReac dizzy Verified 12/15/20 08:09 Sleep Note - Sleep Note Sleep Note: Temperature: Pulse Rate: Respiratory Rate: Blood Pressure: SpO2: Height: Weight: BMI: Neck Circumference:
== END ==
LOC: SLEEP 11:23
PROVIDERS: ATTEND Internal Medicine
DX: G47.33 Obstructive sleep apnea (adult) (pediatric) (principal); E66.9 Obesity, unspecified; Z68.42 Body mass index [BMI] 45.0-49.9, adult; I10 Essential (primary) hypertension; E03.9 Hypothyroidism, unspecified; Z98.890 Other specified postprocedural states; E78.5 Hyperlipidemia, unspecified; M10.9 Gout, unspecified; R73.03 Prediabetes; N28.89 Other specified disorders of kidney and ureter; Z79.890 Hormone replacement therapy; Z79.82 Long term (current) use of aspirin; Z88.5 Allergy status to narcotic agent
CPT/HCPCS: 99211

== ENCOUNTER → 2022-05-31 | Outpatient (CLI) | payer MEDICARE ==
--- NOTE | 2022-06-01 10:04 | BD ---
EXAMINATION TYPE: Axial Bone Density DATE OF EXAM: 05/31/2022 COMPARISON: 09/25/2018 CLINICAL HISTORY: 67 years year old Female. ICD-10 CODE: M81.0 AGE-RELATED OSTEOPOROSIS Height: 5 FT 5 IN Weight: 260 FRAX RISK QUESTIONS: Alcohol (3 or more units per day): NO Family History (Parent hip fracture): NO Glucocorticoids (More than 3mos): NO (Ex: prednisone, prednisolone, methylprednisolone, dexamethasone, and hydrocortisone). History of Fracture in Adulthood: NO Secondary Osteoporosis: 1. Type 1 Diabetes: NO 2. Hyperthyroidism: NO 3. Menopause before 45: NO 4. Malnutrition: NO 5. Chronic liver disease: NO Rheumatoid Arthritis: NO Current Tobacco Use: [place] RISK FACTORS HISTORY OF: Surgery to Spine/Hip(right/left)/Wrist (right/left): NO Family History of Osteoporosis: NO Active: NO Diet low in dairy products/other sources of calcium: NO Postmenopausal woman: YES Take estrogen and/or progesterone medications: NO Lost more than 2 inches in height since high school: NO Frequent falls: NO Poor Health: FAIR Hyperparathyroidism: NO Adrenal Insufficiency: ONLY HAS ONE KIDNEY MEDICATIONS: Thyroid Medications: YES Which medication: LEVOTHYROXINE How Long: APPROX 10 YEARS Additional Medications: LEVOTHYROXINE ,VIT D,ATORVASTATIN,BACLOFEN,,ISOSORBIDE, ALLOPURINOL, VALSARTA N, METFORMIN, DULOXATINE, OXYBUTYNIN,METOPROLOL, DICLOFENAC Additional History: EXAM MEASUREMENTS: Bone mineral densitometry was performed using the alike System. Bone mineral density as measured about the Lumbar spine is: ----- L1-L4(G/cm2): 2.038 T Score Values are as follows: ----- L1: 5.9 ----- L2: 5.3 ----- L3: 8.0 ----- L4: 8.7 ----- L1-L4: 7.1 Bone mineral density has: INCREASED 9.6 % since study of: 2019 Bone mineral density about the R hip (g/cm2): 1.186 Bone mineral density about the L hip (g/cm2): 1.175 T Score values are as follows: -----R Neck: 1.1 -----L Neck: 1.0 -----R Total: 1.5 -----L Total: 1.8 Bone mineral density has: DECREASED -5.5 % since study of: 2019 FRAX%s: The graph provided illustrates a 4.9 % chance for a major osteoporotic fx and a 0.1 % chance for the hips probability for fx in 10 years time. IMPRESSION: Normal (Values between +1 and -1 indicate normal bone mass). Consider repeating this study in 5 year s or sooner if there is some new clinical indication. NOTE: T-SCORE=SD OF THE YOUNG ADULT MEAN.
--- NOTE | 2022-06-01 18:51 | MM ---
Reason for Exam: Screening (asymptomatic). Last mammogram was performed 3 year(s) and 8 month(s) ago. Patient History: Menarche at age 12. First Full-Term at age 32. Late child-bearing (after 30). Postmenopausal. Maternal grandmother had breast cancer. Maternal aunt had breast cancer. Risk Values: Emeli 5 year model risk: 2.3%. NCI Lifetime model risk: 7.9%. Prior Study Comparison: 05/20/2013 Left Diagnostic Mammogram, [facility]. 09/07/2015 Bilateral Screening Mammogram, [facility]. 09/25/2018 Bilateral Screening Mammogram, [facility]. Tissue Density: There are scattered fibroglandular densities. Findings: Analyzed By CAD. There is no suspicious group of microcalcifications or new suspicious mass in either breast. Overall Assessment: Negative, BI-RAD 1 Management: Screening Mammogram of both breasts in 1 year. 1. Patient should continue monthly self breast exams. 2. A clinical breast exam by your physician is recommended on an annual basis. 3. This exam should not preclude additional follow-up of suspicious palpable abnormalities. Electronically signed and approved by: Nelda Quintero M.D. Radiologist
== END | disposition home or self-care (01) ==
LOC: RADMAMWWP 13:49
PROVIDERS: ATTEND Internal Medicine Geriatric Medicine
DX: Z12.31 Encounter for screening mammogram for malignant neoplasm of breast (principal); M81.0 Age-related osteoporosis without current pathological fracture; Z78.0 Asymptomatic menopausal state; Z80.3 Family history of malignant neoplasm of breast
CPT/HCPCS: 77063; 77067; 77080

== ENCOUNTER → 2022-07-12 | Outpatient (CLI) | payer MEDICARE ==
--- NOTE | 2022-07-12 13:47 | P.PN ---
Subjective DATE: 07/12/2022 FOLLOW UP VISIT. Patient with obstructive sleep apnea hypopnea syndrome return to sleep center for follow-up visit. Recently patient had sleep study which documented obstructive sleep apnea hypopnea syndrome. Patient was initiated on PAP therapy and today is first visit after treatment was started. Patient feels better why she is using her BPAP equipment. I explained results of sleep studies to patient in details Patient was able to use BPAP equipment most of the nights but sometimes not for the whole night.. The patient does not have significant problems with the mask, PAP pressure and humidification. [place] sleepiness scale is 5, which is normal. I checked information from BPAP unit. BPAP unit pressure maximal inspiratory pressure 19, minimal expiratory pressure 18, average pressure 16.8 over 12.8 cm H2O. Usage is 87%, but the 30% for more then 4 hours, average 3 hours 21 minutes per night. Leak is 5.8 l/m, which is in acceptable range. Apnea Hypopnea Index is 6.3, which is borderline. MEDICATIONS:1. Atorvastatin 40 mg once a day 2. Allopurinol 100 mg once a day 3. Valsartan 40 mg once a day 4. Metoprolol 100 mg twice a day 5. Levothyroxine 50 g once a day 6. Aspirin 81 mg once a day 7. Isosorbide 30 mg once a day During physical exam: GENERAL: A pleasant patient without any distress. VITAL SIGNS: BP 151/81, HR 57, RR 16, weight 271.0, temperature 96.3, oxygen saturation at room air 98%. HEENT: PERRLA, EOMI.low position of soft palate, Mallapati 4 . NECK: Supple. No JVD. LUNGS: Clear to percussion and to auscultation. Good air exchange. No wheezing or rhonchi. HEART: S1, S2 regular. ABDOMEN: Soft and nontender. Obese EXTREMITIES: No clubbing or cyanosis. CHINESE MEDICINE PRACTITIONER: Awake, alert, and oriented x3. No focal deficit. Impressions: 1. Obstructive sleep apnea-hypopnea syndrome in severe range apnea-hypopnea index 67.0. Normal respiration on CPAP, benefiting from treatment. 2. Obesity. 3. Hypertension. 4. Hypothyroidism. 5. Hyperlipidemia. 6. Gout. 7.. Pre Diabetes. 8. Status post aortic dissection with 1 kidney not functioning after dissection. Plan: 1. Continue using PAP equipment every night for the whole night. Patient promised to follow recommendations. 2. To change air filter at least 1-2 times per month. 3. PAP unit should stay lower then position of the head. 4. Advised patient to remove all remaining water from humidifier canister daily and make it dry after each usage. Refill canister with fresh distilled water before each usage. 5. Sleep hygiene with regular time in bed for at least 8 hours. 6. Precautions related to driving. No driving if feel any sleepiness. 7. I will maintain prescription for PAP supplies including mask, tube, filters. 8. Follow up visit in 6 months or earlier if patient has any problems. 9. Watching and losing weight. Thank you very much for allowing me to participate in the management of your patient. Jhon Delgado MD, PhD, FAASM. Diplomat of [place] [employer], Sleep Medicine Board by [place] [employer] Inspector of [facility] [place]
== END ==
LOC: SLEEP 13:05
PROVIDERS: ATTEND Internal Medicine
DX: G47.33 Obstructive sleep apnea (adult) (pediatric) (principal); E66.9 Obesity, unspecified; I10 Essential (primary) hypertension; E78.5 Hyperlipidemia, unspecified; E03.9 Hypothyroidism, unspecified; M10.9 Gout, unspecified; R73.09 Other abnormal glucose; Z88.5 Allergy status to narcotic agent; Z99.89 Dependence on other enabling machines and devices; Z95.828 Presence of other vascular implants and grafts; Z79.82 Long term (current) use of aspirin; Z79.899 Other long term (current) drug therapy
CPT/HCPCS: 99212

== ENCOUNTER → 2023-01-31 | Outpatient (CLI) | payer MEDICARE ==
--- NOTE | 2023-01-31 13:40 | P.PN ---
Subjective DATE: 01/31/2023 FOLLOW UP VISIT. Patient with obstructive sleep apnea hypopnea syndrome return to sleep center for follow-up visit. Information from previous visit have been reviewed. Patient is using PAP equipment every night for the whole night, getting PAP supplies in time. The patient does not have significant problems with the mask, PAP unit and humidification. [place] sleepiness scale is 7. I checked information from PAP unit. PAP unit pressure maximal inspiratory pressure 19, minimal expiratory pressure 8, pressure-support 4, average pressure 15.4 over 11.4 cm H2O. Usage is 97% and 60 % for more then 4 hours, average 5 hours per night. Leak is 7.4 l/m, which is in acceptable range. Apnea Hypopnea Index is 3.0, which is normal and showed improvements comparing with the previous visit when it was 6.3. MEDICATIONS:1. Atorvastatin 40 mg once a day 2. Allopurinol 160 mg once a day 3. Valsartan 40 mg once a day 4. Levothyroxine 50 g once a day 5. Metoprolol 100 mg once a day 6. Metformin 400 mg twice a day 7. Oxybutynin 5 mg once a day 8. Vitamin D 2 During physical exam: GENERAL: A pleasant patient without any distress. VITAL SIGNS: BP 128/70, HR 63, RR 16 , weight 272.2, temperature 97.2, oxygen saturation at room air 97 % . HEENT: PERRLA, EOMI.low position of soft palate, Mallapati 4 . NECK: Supple. No JVD. LUNGS: Clear to percussion and to auscultation. Good air exchange. No wheezing or rhonchi. HEART: S1, S2 regular. ABDOMEN: Soft and nontender. Slightly obese EXTREMITIES: No clubbing or cyanosis. SAW BOSS: Awake, alert, and oriented x3. No focal deficit. Impressions: 1. Obstructive sleep apnea-hypopnea syndrome. Patient demonstrated great compliance with treatment, benefiting from treatment. Respiration is normal on BiPAP. 2. Obesity. 3. Hypothyroidism. 4. Hypertension. 5. gout. 6. Hyperlipidemia. 7. 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 8. History of pre diabetes. Plan: 1. Continue using PAP equipment every night for the whole night. 2. To change air filter at least 1-2 times per month. 3. PAP unit should stay lower then position of the head. 4. Advised patient to remove all remaining water from humidifier canister daily and make it dry after each usage. Refill canister with fresh distilled water before each usage. 5. Sleep hygiene with regular time in bed for at least 8 hours. 6. Precautions related to driving. No driving if feel any sleepiness. 7. I will maintain prescription for PAP supplies including mask, tube, filters. 8. Watching and losing weight. 9. Follow up visit in 6 months or earlier if patient has any problems. Thank you very much for allowing me to participate in the management of your patient. Jhon Delgado MD, PhD, FAASM. Diplomat of [employer], Sleep Medicine Board by [employer] User Experience Designer of [facility]
== END ==
LOC: 3 N SLEEP 13:07
PROVIDERS: ATTEND Internal Medicine
DX: G47.33 Obstructive sleep apnea (adult) (pediatric) (principal); E66.9 Obesity, unspecified; E03.9 Hypothyroidism, unspecified; E78.5 Hyperlipidemia, unspecified; I10 Essential (primary) hypertension; M10.9 Gout, unspecified; R73.03 Prediabetes; Z79.84 Long term (current) use of oral hypoglycemic drugs; Z79.890 Hormone replacement therapy; Z79.899 Other long term (current) drug therapy; Z98.890 Other specified postprocedural states; Z99.89 Dependence on other enabling machines and devices; Z88.5 Allergy status to narcotic agent
CPT/HCPCS: 99212

== ENCOUNTER → 2023-08-22 | Outpatient (CLI) | payer MEDICARE ==
--- NOTE | 2023-08-22 13:47 | P.PN ---
Subjective DATE: 08/22/2023 FOLLOW UP VISIT. Patient with obstructive sleep apnea hypopnea syndrome return to sleep center for follow-up visit. Information from previous visit have been reviewed. Patient is using PAP equipment every night for the whole night, getting PAP supplies in time. The patient does not have significant problems with the mask, PAP unit and humidification. [place] sleepiness scale is 6, which is normal. I checked information from PAP unit. PAP unit pressure maximal inspiratory pressure 19, minimal expiratory pressure 8, pressure support 4 cm H2O. Usage is 93% and 90% for more then 4 hours, average 7.25 hours per night. Leak is increased to 34.1 l/m. Apnea Hypopnea Index is 1.8, which is normal. MEDICATIONS:1. Atorvastatin 40 mg once a day 2. Allopurinol 160 mg once a day 3. Levothyroxine 50 mcg once a day 4. Valsartan 40 mg once a day 5. Metoprolol 100 mg once a day 6. Metformin 400 mg twice a day 7. Oxybutynin 5 mg once a day During physical exam: GENERAL: A pleasant patient without any distress. VITAL SIGNS: Please see below HEENT: PERRLA, EOMI.low position of soft palate, Mallapati 4 . NECK: Supple. No JVD. LUNGS: Clear to percussion and to auscultation. Good air exchange. No wheezing or rhonchi. HEART: S1, S2 regular. ABDOMEN: Soft and nontender.[] EXTREMITIES: No clubbing or cyanosis. COUNTER TACKER: Awake, alert, and oriented x3. No focal deficit. Impressions: 1. Obstructive sleep apnea-hypopnea syndrome. Patient demonstrated great compliance with treatment, benefiting from treatment. 2. Hypertension. 3. Obesity patient increased weight of 6 pounds comparing with previous visit. 4. Hypothyroidism. 5. Gout. 6. Hyperlipidemia. 7. 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 8. History of prediabetes. Plan: 1. Continue using PAP equipment every night for the whole night. 2. To change air filter at least 1-2 times per month. 3. PAP unit should stay lower then position of the head. 4. Advised patient to remove all remaining water from humidifier canister daily and make it dry after each usage. Refill canister with fresh distilled water before each usage. 5. Sleep hygiene with regular time in bed for at least 8 hours. 6. Precautions related to driving. No driving if feel any sleepiness. 7. I will maintain prescription for PAP supplies including mask, tube, filters. 8. Follow up visit in 6 months or earlier if patient has any problems. 9. Watching and losing weight. Thank you very much for allowing me to participate in the management of your pat ient. Jhon Delgado MD, PhD, FAASM. Diplomat of [place] [employer], Sleep Medicine Board by [employer] Director Distribution of [facility] [place] Objective - Vital Signs Vital signs: Vital Signs Temp 98.3 F 08/22/23 13:32 Pulse 70 08/22/23 13:32 Resp 12 08/22/23 13:32 BP 130/72 08/22/23 13:32 Pulse Ox 96 08/22/23 13:32 FiO2 Intake & Output 08/21/23 08/22/23 08/22/23 18:59 06:59 18:59 Weight 126.099 kg
[2023-08-22 13:59] VITALS: BP 130/72; PULSE 70; RESP 12; TEMP 98.3
== END ==
LOC: 3 N SLEEP 13:00
PROVIDERS: ATTEND Internal Medicine
DX: G47.33 Obstructive sleep apnea (adult) (pediatric) (principal); I10 Essential (primary) hypertension; E66.9 Obesity, unspecified; E03.9 Hypothyroidism, unspecified; E78.5 Hyperlipidemia, unspecified; M10.9 Gout, unspecified; R73.03 Prediabetes; F12.90 Cannabis use, unspecified, uncomplicated; Z99.89 Dependence on other enabling machines and devices; Z98.890 Other specified postprocedural states; Z88.5 Allergy status to narcotic agent; Z79.82 Long term (current) use of aspirin; Z79.890 Hormone replacement therapy; Z79.899 Other long term (current) drug therapy
CPT/HCPCS: 99212